=== PATIENT | female | born 2000 | race American Indian/Alaskan Native ===

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

== ENCOUNTER 2019-04-11 21:22 | Emergency (ER) | payer SELFPAY ==
--- NOTE | 2019-04-11 21:39 | Event Note ---
ED Screening Note Date of service: 04/11/19 Time: 21:37 ED Screening Note: 18 y/o female comes in for throat and mouth pain and swelling 30 min [employer]. This initial assessment/diagnostic orders/clinical plan/treatment(s) is/are subject to change based on patients health status, clinical progression and re- assessment by fellow clinical providers in the ED. Further treatment and workup at subsequent clinical providers discretion. Patient/guardian urged not to elope from the ED as their condition may be serious if not clinically assessed and managed. Initial orders include:
[2019-04-11 21:40] VITALS: BP 107/68
--- NOTE | 2019-04-12 01:09 | Emergency Department Report ---
Blank Doc - Documentation Documentation: Patient was seen by provider for a medical triage only. Patient left before b eing examined, treated, or diagnosis. I came to the Room and patient was not there. I called the patient 2 times that a number was listed with no answer. Patient left without being seen.
== END 2019-04-12 01:10 | disposition left against medical advice (07) ==
LOC: ED 21:22
DX: R68.84 Jaw pain (principal); Z53.21 Procedure and treatment not carried out due to patient leaving prior to being seen by health care provider

== ENCOUNTER 2019-04-12 13:16 | Emergency (ER) | payer SELFPAY ==
--- NOTE | 2019-04-12 13:33 | Event Note ---
ED Screening Note Date of service: 04/12/19 Time: 13:30 ED Screening Note: This is a 18 y.o. F. that presents to the ER with sore throat and swollen lymph nodes on right. LMP 03/06/2019 Reports pain with swallowing. Denies drooling, fever, and hoarseness. This initial assessment/diagnostic orders/clinical plan/treatment(s) is/are subject to change based on patients health status, clinical progression and re- assessment by fellow clinical providers in the ED. Further treatment and workup at subsequent clinical providers discretion. Patient/guardian urged not to elope from the ED as their condition may be serious if not clinically assessed and managed. Initial orders include:
--- NOTE | 2019-04-12 14:02 | Emergency Department Report ---
ED ENT HPI - General Chief complaint: Sore Throat Stated complaint: SWOLLEN ON FRONT R SIDE OF NECK Time Seen by Provider: 04/12/19 13:30 Source: patient Mode of arrival: Ambulatory Limitations: No Limitations - History of Present Illness Initial comments: Kate is a healthy 18 yo female who presents with swollen lymph node under right chin. NO other symptoms. No fever. No cough. NO sore throat. MD complaint: other (swollen lymph node) -: Gradual, days(s) (1) Location: throat Severity: mild Quality: aching Consistency: constant Improves with: none Worsens with: none - Related Data Previous Rx's Medication Instructions Recorded Last Taken Type Sulfamethoxazole/Trimethoprim 1 each PO BID #14 tablet 10/13/17 Unknown Rx [Bactrim DS TAB] Amoxicillin [Amoxicillin TAB] 875 mg PO BID 7 Days #14 tablet 04/12/19 Unknown Rx Allergies Allergy/AdvReac Type Severity Reaction Status Date / Time No Known Allergies Allergy Unverified 05/19/15 00:17 ED Dental HPI - General Chief complaint: Sore Throat Stated complaint: SWOLLEN ON FRONT R SIDE OF NECK Time Seen by Provider: 04/12/19 13:30 Source: patient Mode of arrival: Ambulatory Limitations: No Limitations - Related Data Previous Rx's Medication Instructions Recorded Last Taken Type Sulfamethoxazole/Trimethoprim 1 each PO BID #14 tablet 10/13/17 Unknown Rx [Bactrim DS TAB] Amoxicillin [Amoxicillin TAB] 875 mg PO BID 7 Days #14 tablet 04/12/19 Unknown Rx Allergies Allergy/AdvReac Type Severity Reaction Status Date / Time No Known Allergies Allergy Unverified 05/19/15 00:17 ED Review of Systems ROS: Stated complaint: SWOLLEN ON FRONT R SIDE OF NECK Other details as noted in HPI Constitutional: denies: fever, malaise ENT: denies: ear pain, throat pain Respiratory: denies: cough Gastrointestinal: denies: abdominal pain, nausea, vomiting ED Past Medical Hx - Past Medical History Additional medical history: CHLAMYDIA - Surgical History Past Surgical History?: No - Social History Smoking Status: Current Some Day Smoker Substance Use Type: Marijuana - Medications Home Medications: Home Medications Medication Instructions Recorded Confirmed Last Taken Type Sulfamethoxazole/Trimethoprim 1 each PO BID #14 tablet 10/13/17 Unknown Rx [Bactrim DS TAB] Amoxicillin [Amoxicillin TAB] 875 mg PO BID 7 Days #14 tablet 04/12/19 Unknown Rx ED Physical Exam - General Limitations: No Limitations General appearance: alert, in no apparent distress - Head Head exam: Present: atraumatic, normocephalic - Eye Eye exam: Absent: scleral icterus, conjunctival injection - ENT ENT exam: Present: normal orophraynx - Neck Neck exam: Present: lymphadenopathy (3 cm mobile soft lymph node versus neck mass right submandibular region just anterior to the angle of the mandible) - Respiratory Respiratory exam: Present: normal lung sounds bilaterally. Absent: respiratory distress, wheezes, rales, rhonchi - Neurological Exam Neurological exam: Present: alert, oriented X3 - Psychiatric Psychiatric exam: Present: normal affect, normal mood - Skin Skin exam: Present: warm, dry, intact, normal color ED Course Vital Signs 04/12/19 13:30 Temperature 98.3 F Pulse Rate 80 Respiratory 18 Rate Blood Pressure 122/74 O2 Sat by Pulse 98 Oximetry ED Medical Decision Making - Medical Decision Making Clinical impression lymphadenitis no indication of abscess differential includes malignancy. Patient understands to have the neck mass evaluated if it does not resolve within the next 2 weeks. Critical care attestation.: If time is entered above; I have spent that time in minutes in the direct care of this critically ill patient, excluding procedure time. ED Disposition Clinical Impression: Lymphadenitis, Neck mass Disposition: [id number] TO HOME OR SELFCARE Is pt being admited?: No Does the pt Need Aspirin: No Condition: Stable Instructions: Adenitis (ED) Additional Instructions: Please have your neck evaluated if the swelling persists for 2 weeks. Prescriptions: Amoxicillin [Amoxicillin TAB] 875 mg PO BID 7 Days #14 tablet Referrals: [facility] [Outside] - 3-5 Days Forms: Work/School Release Form(ED)
[2019-04-12 14:38] VITALS: BP 113/70
== END 2019-04-12 14:38 | disposition home or self-care (01) ==
LOC: ED 13:16
DX: I88.9 Nonspecific lymphadenitis, unspecified (principal); R22.1 Localized swelling, mass and lump, neck; A74.9 Chlamydial infection, unspecified; F17.200 Nicotine dependence, unspecified, uncomplicated; F12.10 Cannabis abuse, uncomplicated; Z79.899 Other long term (current) drug therapy
CPT/HCPCS: 99282

== ENCOUNTER 2020-06-19 13:50 | Outpatient (CLI) | payer MEDICAID ==
[2020-06-19] MEDS ORDERED: LACTATED RINGERS 1,000 ML IV SCH (14:00)
[2020-06-19 14:23] VITALS: BP 103/64
[2020-06-19 15:02] LABS: Bacteria,Urine 2+ /HPF (Negative); Bilirubin,Urine NEG (Negative); Blood,Urine NEG (Negative); Color,Urine Yellow (Yellow); Mucus,Urine FEW /HPF; Protein,Urine <15 mg/dL mg/dL (Negative); Urobilinogen,Urine < 2.0 mg/dL (<2.0)
== END 2020-06-19 16:10 | disposition home or self-care (01) ==
LOC: TRG 13:50 → APU 13:58 → TRG 16:10
PROVIDERS: ATTEND Obstetrics & Gynecology
DX: O46.93 Antepartum hemorrhage, unspecified, third trimester (principal); Z3A.33 33 weeks gestation of pregnancy
CPT/HCPCS: 81001

== ENCOUNTER 2020-08-01 07:13 | Outpatient (CLI) | payer MEDICAID ==
[2020-08-01 08:00] VITALS: BP 113/72
== END 2020-08-01 09:36 | disposition home or self-care (01) ==
LOC: EDBD → TRG 07:13 → APU 07:14 → TRG 09:36
PROVIDERS: ATTEND Obstetrics & Gynecology
DX: O47.1 False labor at or after 37 completed weeks of gestation (principal); Z3A.39 39 weeks gestation of pregnancy
CPT/HCPCS: 59025

== ENCOUNTER 2021-08-21 12:47 | Emergency (ER) | payer MEDICAID ==
--- NOTE | 2021-08-21 13:08 | Emergency Department Report ---
HPI - General Chief Complaint: Abdominal Pain Time Seen by Provider: 08/21/21 12:57 - HPI HPI: 21-year-old -[place] female presents to the emergency department with complaint of a 2-day history of progressively worsening upper abdominal pain. Initially patient had nausea, vomiting and diarrhea but that has since resolved. She says that she initially also had this abdominal pain but it was very mild. At this time she says it is a 5 out of 10 in intensity but mostly occurs, if not worsens, when she is moving around or lifting something. She describes it as a soreness. No known alleviating factors. She has not taken anything for symptom s prior to presentation today. She denies any past medical history. She denies any fever, dysuria vaginal bleeding or discharge, back pain. ED Past Medical Hx - Past Medical History Hx Hypertension: No Hx Heart Attack/AMI: No Hx Diabetes: No Hx Deep Vein Thrombosis: No Hx Renal Disease: No Hx Sickle Cell Disease: No Hx Seizures: No Hx Asthma: No Hx HIV: No Additional medical history: CHLAMYDIA - Social History Smoking Status: Never Smoker - Medications Home Medications: Home Medications Medication Instructions Recorded Confirmed Last Taken Type Docusate Sodium [Colace] 100 mg PO BID PRN #14 capsule 08/21/21 Unknown Rx ED Review of Systems ROS: Stated complaint: ABDOMINAL PAIN Other details as noted in HPI Comment: All other systems reviewed and negative Constitutional: denies: chills, fever Respiratory: denies: cough, shortness of breath Cardiovascular: denies: chest pain, palpitations Gastrointestinal: abdominal pain, nausea, vomiting (Resolved), diarrhea (Resolved) Genitourinary: denies: dysuria, discharge Musculoskeletal: denies: back pain, arthralgia Neurological: denies: headache, weakness Physical Exam - Physical Exam Vital Signs: Vital Signs 08/21/21 12:50 Temperature 98.2 F Pulse Rate 84 Respiratory 19 Rate Blood Pressure 109/43 O2 Sat by Pulse 97 Oximetry Physical Exam: GENERAL: The patient is well-developed well-nourished. HENT: Normocephalic. Atraumatic. Patient has moist mucous membranes. EYES: Extraocular motions are intact. NECK: Supple. Trachea is midline. CHEST/LUNGS: Clear to auscultation. There is no respiratory distress noted. HEART/CARDIOVASCULAR: Regular. There is no tachycardia. There is no murmur. ABDOMEN: Abdomen is soft. Upper abdominal tenderness to palpation. No guarding. Patient has normal bowel sounds. There is no abdominal distention. SKIN: Skin is warm and dry. NEURO: The patient is awake, alert, and oriented. The patient is cooperative. The patient has no focal neurologic deficits. Normal speech. MUSCULOSKELETAL: There is no tenderness or deformity. There is no limitation range of motion. ED Course Vital Signs 08/21/21 12:50 Temperature 98.2 F Pulse Rate 84 Respiratory 19 Rate Blood Pressure 109/43 O2 Sat by Pulse 97 Oximetry ED Medical Decision Making - Lab Data Result diagrams: 08/21/21 13:30 08/21/21 13:30 Lab Results 08/21/21 08/21/21 08/21/21 Range/Units 13:30 13:30 13:30 WBC 6.0 (4.5-11.0) K/mm3 RBC 4.18 (3.65-5.03) M/mm3 Hgb 12.4 (10.1-14.3) gm/dl Hct 39.0 (30.3-42.9) % MCV 93 (79-97) fl MCH 30 (28-32) pg MCHC 32 (30-34) % RDW 13.2 (13.2-15.2) % Plt Count 285 (140-440) K/mm3 Lymph % (Auto) 26.6 (13.4-35.0) % [place] % (Auto) 9.0 H (0.0-7.3) % Eos % (Auto) 1.2 (0.0-4.3) % Baso % (Auto) 0.4 (0.0-1.8) % Lymph # (Auto) 1.6 (1.2-5.4) K/mm3 [place] # (Auto) 0.5 (0.0-0.8) K/mm3 Eos # (Auto) 0.1 (0.0-0.4) K/mm3 Baso # (Auto) 0.0 (0.0-0.1) K/mm3 Seg Neutrophils % 62.8 (40.0-70.0) % Seg Neutrophils # 3.8 (1.8-7.7) K/mm3 Sodium 138 (137-145) mmol/L Potassium 3.8 (3.6-5.0) mmol/L Chloride 104.6 (98-107) mmol/L Carbon Dioxide 20 L (22-30) mmol/L Anion Gap 17 mmol/L BUN 8 (7-17) mg/dL Creatinine 0.6 (0.6-1.2) mg/dL Estimated GFR > 60 ml/min BUN/Creatinine Ratio 13 % Glucose 108 H (65-100) mg/dL Calcium 8.6 (8.4-10.2) mg/dL Total Bilirubin 0.30 (0.1-1.2) mg/dL AST 14 (5-40) units/L ALT 14 (7-56) units/L Alkaline Phosphatase 70 (35-129) units/L Total Protein 6.5 (6.3-8.2) g/dL Albumin 4.1 (3.9-5) g/dL Albumin/Globulin Ratio 1.7 % Lipase 44 (13-60) units/L HCG, Qual Negative (Negative) - Radiology Data Radiology results: image reviewed interpreted by me: Abdominal x-ray shows nonspecific nonobstructive bowel gas. No free air. - Medical Decision Making This patient presents with a 2-day history of progressively worsening upper abdominal pain. She describes it as a soreness. There is some reproducible upper abdominal tenderness to palpation. The abdomen is soft, nondistended and nontoxic in appearance. Labs have been unremarkable including CBC, CMP, lipase. Patient was given a dose of ibuprofen. Abdominal x-ray shows nonspecific nonobstructive bowel gas, and no free air. She was reevaluated multiple times for multiple hours and says that she is feeling improved. Vital signs reassuring including being afebrile. For all these reasons patient appears safe for discharge home at this time. She has been instructed to follow-up with primary care and will return to the ER with any worsening of her symptoms or with any acute distress. Critical Care Time: No Critical care attestation.: If time is entered above; I have spent that time in minutes in the direct care of this critically ill patient, excluding procedure time. ED Disposition Clinical Impression: Increased stool volume Abdominal pain Qualifiers: Abdominal location: unspecified location Qualified Code(s): R10.9 - Unspecified abdominal pain Disposition: 01 HOME / SELF CARE / HOMELESS Is pt being admited?: No Condition: Stable Instructions: Abdominal Pain, Adult, Abdominal Pain (ED) Additional Instructions: Please follow-up with a primary care physician in the next few days. Increase your oral rehydration. Return to the emergency department with any worsening of your symptoms, new or concerning symptoms not addressed during this current emergency department visit, or with any acute distress. Prescriptions: Docusate Sodium [Colace] 100 mg PO BID PRN #14 capsule PRN Reason: Constipation Referrals: PRIMARY CARE, [Primary Care Provider] - 2-3 Days Time of Disposition: 15:06
[2021-08-21 14:04] LABS: Basophils % (Auto) 0.4 % (0.0-1.8); Eosinophils # (Auto) 0.1 K/mm3 (0.0-0.4); Eosinophils % (Auto) 1.2 % (0.0-4.3); Hemoglobin 12.4 gm/dl (10.1-14.3); Lymphocytes # (Auto) 1.6 K/mm3 (1.2-5.4); Lymphocytes % (Auto) 26.6 % (13.4-35.0); Mean Corpuscular HGB Conc 32 % (30-34); Mean Corpuscular Volume 93 fl (79-97); Monocytes # (Auto) 0.5 K/mm3 (0.0-0.8); Platelet Count 285 K/mm3 (140-440); Red Blood Count 4.18 M/mm3 (3.65-5.03); Red Cell Distribution Width 13.2 % (13.2-15.2)
[2021-08-21 14:22] LABS: Alanine Aminotransferase 14 units/L (7-56); Albumin 4.1 g/dL (3.9-5); BUN/Creatinine Ratio 13; Blood Urea Nitrogen 8 mg/dL (7-17); Calcium 8.6 mg/dL (8.4-10.2); Hemolysis Index 6
[2021-08-21] MEDS ORDERED: IBUPROFEN 800 MG TAB PO ONE (14:26)
--- NOTE | 2021-08-21 14:51 | XRay Report ---
ABDOMEN 2 VIEW(S) INDICATION / CLINICAL INFORMATION: Abd pain. COMPARISON: None available. FINDINGS: TUBES / LINES: None. BOWEL GAS PATTERN: Moderate scattered colonic stool. No bowel distention or free air. ADDITIONAL FINDINGS: No significant additional findings. IMPRESSION: Moderate colonic stool. Signer Name: Yanick Torres MD Signed: 08/21/2021 2:46 PM Workstation Name: [id number]
[2021-08-21 15:30] VITALS: BP 122/75
== END 2021-08-21 15:29 | disposition home or self-care (01) ==
LOC: ED 12:47
DX: K56.41 Fecal impaction (principal)
CPT/HCPCS: 36415; 74019; 80053; 83690; 84703; 85025; 99283